=== PATIENT | female | born 1950 | race Caucasian/White ===

== ENCOUNTER 2016-08-18 15:34 | Emergency (ER) | payer SELFPAY ==
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
[2016-08-18] MEDS ORDERED: HYDROcodone/ACETAMIN 5-325 MG* 1 TAB PO ONE (17:40)
[2016-08-18] MEDS ORDERED: Aspirin Low Dose CHEW TAB* 81 MG PO ONE (18:28)
[2016-08-18] MEDS ORDERED: NS 0.9% 1000 ML* 1,000 ML IV SCH ×2 (18:30→21:00)
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
[2016-08-18 19:45] LABS: Hematocrit 41 % (35-47); Hemoglobin 13.7 g/dl (12.0-16.0); Mean Corpuscular HGB Conc 34 g/dl (31-36); Mean Corpuscular Hemoglobin 30 pg (27-31); Mean Corpuscular Volume 90 fL (80-97); Mean Platelet Volume 9 um3 (7.4-10.4); Red Blood Count 4.52 10^6/ul (4.0-5.4); Red Cell Distribution Width 13 % (10.5-15); White Blood Count 12.7 10^3/ul (3.5-10.8)
[2016-08-18 20:06] LABS: Albumin 4.2 g/dL (3.2-5.2); BUN/Creatinine Ratio 28.6 (8-20); C Reactive Protein 3.75 mg/L (< 5.00); Calcium 9.4 mg/dL (8.6-10.3); EGFR African American 79.8 (>60); Globulin 3.2 g/dL (2-4); Total Bilirubin 0.4 mg/dL (0.2-1.0); Total Protein 7.4 g/dL (6.4-8.9)
[2016-08-18 20:09] LABS: Potassium 3.4 mmol/L (3.5-5.0)
[2016-08-18 20:10] LABS: Troponin I 0.09 ng/mL (<0.04)
[2016-08-18 20:39] LABS: TSH (Thyroid Stimulating Horm) 1.46 mcIU/mL (0.34-5.60)
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
[2016-08-18 21:39] VITALS: BP 143/91
== END 2016-08-18 21:30 | disposition short-term general hospital (02) ==
LOC: ED 15:34
DX: S60.212A Contusion of left wrist, initial encounter (principal); S40.029A Contusion of unspecified upper arm, initial encounter; M79.642 Pain in left hand; R07.9 Chest pain, unspecified; V49.9XXA Car occupant (driver) (passenger) injured in unspecified traffic accident, initial encounter; Y93.9 Activity, unspecified; Y92.9 Unspecified place or not applicable
CPT/HCPCS: 36415; 71020; 71120; 80053; 82550; 82553; 83605; 83690; 83735; 83880; 84443; 84484; 85025; 85610; 85730; 86140; 93005; 99284; A9270-GY